=== PATIENT | male | born 1995 | race African-American/Black ===

== ENCOUNTER 2017-05-03 12:27 | Emergency (ER) | payer MEDICAID ==
[~2017-05-03] VITALS: Ht 175.3 cm; Wt 76.2 kg
[2017-05-03 12:43] VITALS: BP 131/70
[2017-05-03 13:54] VITALS: BP 127/64
[2017-05-03] MEDS ORDERED: IBUPROFEN600 MG ORAL (14:00)
[2017-05-03] MEDS ORDERED: KNEE BRACE1 EACH MC (14:00)
[2017-05-03 14:03] VITALS: BP 127/64
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
--- NOTE | 2017-05-04 09:00 | Diagnostic Imaging Report ---
Indications: Right knee pain Technique: 3 views of the right knee Findings: Comparison: None No fracture, dislocation, lytic destruction, periosteal reaction, joint space widening or effusion, surrounding soft tissue abnormality, or other acute changes demonstrated. Small spurs emanate from the endosteal cortical surface of the proximal tibial diaphysis. No additional deformity, alignment abnormality, arthritic change, soft tissue calcification, or other chronic changes demonstrated. IMPRESSION: No evidence of acute abnormality of the right knee Proximal tibial spurs likely secondary to chronic biomechanical stresses
== END 2017-05-03 14:05 | disposition home or self-care (01) ==
LOC: EMR 13:07
DX: S83.92XA Sprain of unspecified site of left knee, initial encounter (principal); S83.91XA Sprain of unspecified site of right knee, initial encounter; X58.XXXA Exposure to other specified factors, initial encounter; Y93.67 Activity, basketball; Y92.9 Unspecified place or not applicable
CPT/HCPCS: 99284